=== PATIENT | female | born 1945 | race Caucasian/White ===

== ENCOUNTER 2021-09-03 06:45 | Outpatient (CLI) | payer MEDICARE ==
[~2021-09-03] VITALS: Ht 157.5 cm; Wt 76.2 kg
[2021-09-03] MEDS ORDERED: FAMO20TA3 PO (10:02)
[2021-09-03] MEDS ORDERED: IRBE300T17 PO (10:02)
[2021-09-03] MEDS ORDERED: METF-397 PO (10:02)
[2021-09-03] MEDS ORDERED: FEXO180T84 PO (10:02)
[2021-09-03] MEDS ORDERED: TRIA1TAB3 PO (10:02)
[2021-09-08] MEDS ORDERED: HYDR-3817 PO (11:27)
== END 2021-09-03 10:06 | disposition home or self-care (01) ==
LOC: PREOP 06:45
PROVIDERS: ATTEND Surgery
DX: Z01.818 Encounter for other preprocedural examination (principal)
CPT/HCPCS: 87081

== ENCOUNTER 2021-09-08 06:08 | Day surgery (SDC) | payer MEDICARE ==
--- NOTE | 2021-09-02 16:07 | HISTORY AND PHYSICAL ---
DATE OF SERVICE: ATTENDING PRIMARY CARE PHYSICIAN: Dr. Andrae Clifford. HISTORY: The patient is a 75-year-old female with a palpable breast lesion of the right breast. She states that she noticed this in early June. She does do monthly breast self-examinations as well as yearly mammograms. No other lesions were identified on previous mammograms. The lesion is approximately the 9 o'clock position and is palpable and hard in nature as well as solid. She states that she fell in 12/2020, however, does not feel that this is secondary to the fall. An ultrasound was performed on 08/14/2021, which did show 1.8 x 1.7 cm lesion of the right breast at the 9 o'clock position. She states menses at around age 16 and menopause in her early 40s. She has never been and has not given any live childbirths. She has not had any previous breast biopsies before in the past. She also has not taken any oral contraceptive pills. She does not report any family history of breast cancer. The lesion was palpable and we will schedule her for a 3D mammography; however, also proceed with a needle biopsy today in the office. Either way due to the characteristics of the lesion, she will need eventual excisional biopsy. PAST MEDICAL HISTORY: Diabetes, hypertension, gastroesophageal reflux disease. PAST SURGICAL HISTORY: None. ALLERGIES: PENICILLIN, SULFA. MEDICATIONS: Triamterene/hydrochlorothiazide 37.5/25 mg daily, metformin 500 mg daily, irbesartan 300 mg daily, famotidine 20 mg daily. SOCIAL HISTORY: Previous smoker, quit 40 years ago. Social alcohol. FAMILY HISTORY: Father with lung cancer. Brother, myocardial infarction, age 47. VITAL SIGNS: Stable, current weight 168.7 pounds at 5 feet 2 inches. REVIEW OF SYSTEMS: This is a well-nourished female in no acute distress. She is not experiencing any shortness of breath or difficulty breathing. No chest pain, palpitations, diaphoresis. No nausea, vomiting, no diarrhea or constipation. No fever, chills. No recent inadvertent weight loss. All other review of systems negative. PHYSICAL EXAMINATION: CHEST: Clear. Good breath sounds bilaterally. HEART: Regular, no murmurs. EXTREMITIES: No lower extremity edema, negative Homans sign. HEENT: No scleral icterus. NECK: No cervical lymphadenopathy. ABDOMEN: Soft, nontender, nondistended. BREASTS: There is a well-circumscribed lesion of the right breast at approximately the 9 or 10 o'clock position, which appears to be well demarcated and easily movable and approximately 2 cm in size. No other lesions identified of the right breast as well as the left breast and bilateral axillae. ASSESSMENT AND PLAN: A 75-year-old female with a palpable right breast lesion. We will schedule her for a bilateral 3D mammography; however, due to the solid nature of the lesion, we will eventually need an excisional biopsy, which we will schedule once we get the needle biopsy pathology report. PROCEDURE: The right breast was prepped and draped in standard surgical fashion. A 1% lidocaine was used to anesthetize overlying skin to the lesion. Using a core needle, several biopsies were taken of the palpable lesion and sent on slides as well as in formalin solution. Good hemostasis was observed. Job ID: [id number] DocumentID: [id number] Dictated Date: 08/25/2021 16:26:57 Pocket Stitcher Date: 08/25/2021 16:45:05 Dictated By: HOME CHASE MD
--- NOTE | 2021-09-02 16:08 | HISTORY AND PHYSICAL ---
DATE OF SERVICE: Date of admission will be 09/08/2021. ATTENDING PRIMARY CARE PHYSICIAN: Dr. Andrae Clifford. HISTORY: The patient is a 75-year-old female who noticed a palpable breast lesion at approximately the 9 o'clock position of the right breast in early June of this year. She has been getting screening mammograms for years and her last one was done 08/2020, which did not show any lesions. Once this lesion was palpable, she did undergo an ultrasound, which did show lesion 1.8 x 1.7 cm in size at the 9 o'clock position. This was then biopsied in the office and did come back as an invasive lobular carcinoma. She states that she is otherwise doing well. Has not inadvertently lost any weight and does not report any abdominal pain or any bone pain. She began menses at around age 15 and menopause in her 40s. She has never been and no childbirths. She does not report using any oral contraceptive pills. She has not had any previous biopsies up until the most recent one. She also does not report any family history of breast cancer. PAST MEDICAL HISTORY: Hypertension, diabetes. PAST SURGICAL HISTORY: None. ALLERGIES: PENICILLIN, SULFA. MEDICATIONS: Famotidine 20 mg daily, Suri 180 mg daily, triamterene/hydrochlorothiazide 37.5/25 mg daily, metformin 500 mg daily, irbesartan 300 mg daily. SOCIAL HISTORY: Previous smoker, quit 37 years ago. Social alcohol. FAMILY HISTORY: Father with lung cancer. Brother, myocardial infarction, age 47. VITAL SIGNS: Stable, current weight 168.7 pounds at 5 feet 2 inches. REVIEW OF SYSTEMS: Well-nourished female, currently in no acute distress. She is not experiencing any shortness of breath or difficulty breathing. No chest pain, palpitations, diaphoresis. No nausea, vomiting, no diarrhea or constipation. No fever, chills, no recent inadvertent weight loss. All other review of systems negative. PHYSICAL EXAMINATION: CHEST: Clear. Good breath sounds bilaterally. HEART: Regular, no murmurs. EXTREMITIES: No lower extremity edema, negative Homans sign. HEENT: No scleral icterus. NECK: No cervical lymphadenopathy. ABDOMEN: Soft, nontender, nondistended. SKIN: Warm, dry. BREASTS: There is a palpable lesion at approximately the 9 o'clock position of the right breast, which is small and easily movable. There is no axillary adenopathy. ASSESSMENT AND PLAN: A 75-year-old female with infiltrating lobular carcinoma of the right breast. We will proceed with a right breast lumpectomy as well as a sentinel lymph node biopsy. Job ID: [id number] DocumentID: [id number] Dictated Date: 09/01/2021 17:10:43 Information Services Vice President Date: 09/01/2021 17:30:16 Dictated By: HOME CHASE MD
[2021-09-08] VITALS (11 sets, daily range): BP systolic 117–150; BP diastolic 66–90
[~2021-09-08] VITALS: Ht 157 cm; Wt 76.2 kg
[~2021-09-08 06:08] MED LIST: FAMO20TA3 PO; FEXO180T84 PO; IRBE300T17 PO; METF-397 PO; TRIA1TAB3 PO
[2021-09-08] MEDS ORDERED: CLINDAMYCIN 600 MG/50 ML IVPB 50 ML IV ONE ×2 (06:39→07:15)
[2021-09-08] MEDS ORDERED: LIDOCAINE/EPI 1%-1:200,000 (XYLOCAINE) 30 ML VIAL ONE (11:16)
[2021-09-08] MEDS ORDERED: METHYLENE BLUE 0.5% (PROVAYBLUE) 50 mg/10 ml vial IV ONE (11:16)
[2021-09-08] MEDS ORDERED: fentaNYL INJ 100 MCG/2 ML AMP ONE (11:21)
[2021-09-08] MEDS ORDERED: LIDOCAINE PF 2% 5 ML (XYLOCAINE) VIAL ONE (11:21)
[2021-09-08] MEDS ORDERED: proPOfol 200 MG/20 ML (DIPRIVAN) VIAL IV ONE (11:21)
[2021-09-08] MEDS ORDERED: ONDANSETRON 4 MG/2 ML (SDV) Z0FRAN ONE ×2 (11:21→15:04)
[2021-09-08] MEDS ORDERED: MIDAZOLAM 2 MG/2 ML (VERSED) VIAL ONE (11:23)
--- NOTE | 2021-09-08 11:25 | Progress Note-Pre Operative ---
Pre-Operative Progress Note H&P Reviewed The H&P was reviewed, patient examined and no changes noted. Date Seen by Provider: Sep 08, 2021 Time Seen by Provider: 11:00 Date H&P Reviewed: Sep 08, 2021 Time H&P Reviewed: 11:00 Pre-Operative Diagnosis: right breast ca HOME CHASE MD Sep 08, 2021 11:25
[2021-09-08] MEDS: LACTATED RINGERS 1,000 ML IV PRN ×2 (11:26→14:38)
[2021-09-08] MEDS ORDERED: HYDR-3817 PO (11:27)
--- NOTE | 2021-09-08 11:27 | Discharge Inst-Surgical ---
D/C Lap Instructions-KIDO New, Converted, or Re-Newed RX: RX on Chart Follow Up Appt in 2 weeks Activity as tolerated No driving for 24 hours No [address] while on pain medications Incentive Spirometry use every 2 hours while awake High Fiber Diet 25g or more per day Avoid Alcohol, Caffeine, Spicy [place] and Acid foods. Drink 64 fluid oz or more of fluids per day. Symptoms to Report: Fever over 101 degree F, Nausea/Vomiting If any problems/questions: Contact your physician or go to Emergency Room HOME CHASE MD Sep 08, 2021 11:27
[2021-09-08] MEDS ORDERED: morphine INJ 10 MG/ML 1ML (SYR OR VIAL) IVP PRN ×2 (11:30)
[2021-09-08] MEDS ORDERED: ONDANSETRON 4 MG/2 ML (SDV) Z0FRAN IVP PRN ×2 (11:30→14:45)
[2021-09-08] MEDS ORDERED: ACETAMINOPHEN 325 MG TABLET PO PRN (11:30)
[2021-09-08] MEDS ORDERED: oxyCODONE/APAP 5/325MG (PERCOCET 5) TABLET PO PRN (11:30)
[2021-09-08] MEDS ORDERED: ROPIVACAINE 5MG/ML 30ML VIAL ONE (12:21)
[2021-09-08] MEDS ORDERED: PHENYLEPHRINE 100 MCG/ML 10 ML (ANESTHESIA) SYR ONE (13:09)
--- NOTE | 2021-09-08 14:31 | Progress Note-Post Operative ---
Post-Operative Progess Note Surgeon (s)/Windows Migration Technician (s) Surgeon HOME CHASE MD Windows Migration Technician: fabian garcia PLANT PACKER Pre-Operative Diagnosis right breast ca Post-Operative Diagnosis same Procedure & Operative Findings Date of Procedure 09/08/21 Procedure Performed/Findings subdermal injection, right axillary sentinel node bx, right breast lumpectomy. Anesthesia Type general LMA Estimated Blood Loss Estimated blood loss (mL): minimal Specimens/Packing Specimens Removed right axilla sentinel node. right breast ca, anterior margin HOME CHASE MD Sep 08, 2021 14:31
[2021-09-08] MEDS ORDERED: KETOROLAC 30 MG/ML VIAL ONE (14:43)
[2021-09-08] MEDS ORDERED: SEVOFLURANE (ULTANE) 15 ML INHAL SOLN ONE (14:43)
[2021-09-08] MEDS ORDERED: fentaNYL INJ 100 MCG/2 ML AMP IVP ONE (14:45)
[2021-09-08] MEDS ORDERED: morphine INJ 10 MG/ML 1ML (SYR OR VIAL) IVP ONE (14:45)
[2021-09-08] MEDS ORDERED: morphine INJ 10 MG/ML 1ML (SYR OR VIAL) ONE (15:04)
--- NOTE | 2021-09-08 22:15 | OPERATIVE REPORT ---
DATE OF SERVICE: 09/08/2021 ATTENDING PRIMARY CARE PHYSICIAN: Andrae Clifford MD. PREOPERATIVE DIAGNOSIS: Right breast infiltrating lobular carcinoma. POSTOPERATIVE DIAGNOSIS: Right breast infiltrating lobular carcinoma. PROCEDURES PERFORMED: Submucosal injection, sentinel lymph node biopsy, and right breast lumpectomy. SURGEON: Home Chase MD. ANESTHESIA: General laryngeal mask airway. ESTIMATED BLOOD LOSS: Minimal. FINDINGS: Right breast infiltrating lobular carcinoma. DISPOSITION: The patient tolerated the procedure well. INDICATIONS FOR PROCEDURE: The patient is a 75-year-old female, who noticed a palpable lesion at approximately the 9 o'clock position of the right breast in early June of this year. She has been getting screening mammograms on a yearly basis and the last one was done in 08/2020, which did not show any lesions. Once the lesion was palpable, she did undergo an ultrasound, which did show a 1.8 x 1.7 cm lesion in the 9 o'clock position and this was biopsied in the office and did come back as an invasive lobular carcinoma. She states that she is otherwise doing well and does not report any lymphadenopathy. She also does not report any recent inadvertent weight loss as well as no abdominal pain or any bone pain. She began menses at around age 15 and menopause in her 40s. She has never been with no children. She does not report using any oral contraceptive pills. She has not had any previous breast biopsies up until the most recent one. She also does not report any family history of breast cancer. DESCRIPTION OF PROCEDURE: The patient was brought to the operating room and laid supine on the table. After adequate IV pain and sedative medications and general laryngeal mask airway intubation, the chest and upper extremity were prepped and draped in a standard surgical fashion. Before the procedure, we first proceeded with submucosal injection of isosulfan blue in four quadrants of the nipple areolar complex in a subdermal fashion. This was massaged in for 15 minutes. We then proceeded with identification and excision of the sentinel lymph node using the gamma probe. The axilla was anesthetized with 1% lidocaine with epinephrine and a skin incision was made along the anterior axillary line using a 15 blade. The subcutaneous tissue was then dissected using electrocautery. The clavipectoral fascia was then opened using electrocautery. Using the gamma probe, we identified the sentinel lymph node and the sentinel lymph node was then dissected out using electrocautery with visualization of good hemostasis. The count on the sentinel lymph node was 2286 with a background being 56 consistent with a sentinel lymph node. This was sent for frozen section, which was negative for malignancy. We then directed our attention towards the lumpectomy. A crescent-shaped skin incision was made using a 15 blade after the skin was anesthetized using 1% lidocaine with epinephrine. Subcutaneous tissue was then dissected using electrocautery. We then proceeded with identification of the palpable mass and excising a wide rim of normal appearing tissue using Zee clamps as retraction and electrocautery with visualization of good hemostasis. This was sent for frozen section for gross margins and the closest margin was the anterior along the skin and a wedge of skin was then excised in an elliptical shape using a 15 blade. Good hemostasis was observed. We then proceeded to close the axillary and breast lesion subcutaneous tissue using a 3-0 Vicryl interrupted sutures in a layered fashion and the skin was closed using 4-0 Monocryl running subcuticular sutures. Wounds were then cleaned and covered with Dermabond. The patient tolerated the procedure well. We will start IV normal pain medication as well as a clear liquid diet. When she is tolerating clears, has good pain control with oral pain medications, and ambulating well, we will discharge her home. We will also want her to apply a pressure dressing on the breast and axilla for the next two weeks as well. Job ID: [id number] DocumentID: [id number] Dictated Date: 09/08/2021 14:19:16 Medical Research Scientist Date: 09/08/2021 22:14:33 Dictated By: HOME CHASE MD
--- NOTE | 2021-09-14 12:59 | Anesthesia-General Post-Op ---
General Significant Intra-Op Events Notes late entry from 09/18/21 at 1530 Patient Condition Mental Status/LOC: Same as Preop Cardiovascular: Satisfactory Nausea/Vomiting: Absent Respiratory: Satisfactory Pain: Controlled Complications: Absent Post Op Complications Complications None Follow Up Care/Instructions Patient Instructions None needed. Anesthesia/Patient Condition Patient Condition Patient is doing well, no complaints, stable vital signs, no apparent adverse anesthesia problems. No complications reported per nursing. JENNY CHRISTY CRNA Sep 14, 2021 12:59
== END 2021-09-08 17:00 | disposition home or self-care (01) ==
LOC: RAD 06:08
PROVIDERS: ATTEND Surgery
DX: C50.811 Malignant neoplasm of overlapping sites of right female breast (principal); Z17.0 Estrogen receptor positive status [ER+]; E11.9 Type 2 diabetes mellitus without complications; I10 Essential (primary) hypertension; K21.9 Gastro-esophageal reflux disease without esophagitis; Z79.84 Long term (current) use of oral hypoglycemic drugs; Z79.899 Other long term (current) drug therapy; Z87.891 Personal history of nicotine dependence; Z80.1 Family history of malignant neoplasm of trachea, bronchus and lung; Z88.0 Allergy status to penicillin; Z88.2 Allergy status to sulfonamides
CPT/HCPCS: 82947; 88305; 88307; 88331; 88342; 88360

== ENCOUNTER → 2021-10-12 | Outpatient (CLI) | payer MEDICARE ==
[~2021-10-12] MED LIST changes: +HYDR-3817 PO
--- NOTE | 2021-10-12 13:39 | Diagnostic Imaging Report ---
PROCEDURE: CT chest and abdomen without contrast. TECHNIQUE: Axial images were obtained from the thoracic inlet through the iliac crest without the administration of intravenous contrast. Auto Exposure Controls were utilized during the CT exam to meet ALARA standards for radiation dose reduction. INDICATION: Breast cancer CT CHEST: The lungs are clear. There is no effusion or pneumothorax. There is no mediastinal, hilar or axillary lymphadenopathy. No suspicious bony lesions are seen. CT ABDOMEN: The liver, gallbladder and bile ducts are normal. The spleen, pancreas and adrenals are normal. There is appearance of bilateral parapelvic cysts in the kidneys. No mass is evident. No bowel abnormality is seen. There is no ascites. There is no adenopathy. No suspicious bony lesions are seen. IMPRESSION: CT of the chest and abdomen are negative for metastatic disease. Dictated by: Dictated on workstation # [id number]
--- NOTE | 2021-10-12 15:54 | Diagnostic Imaging Report ---
INDICATION: Breast cancer. COMPARISON: CT chest and abdomen performed on 10/12/2021. TECHNIQUE: 26.5 mCi of technetium 99M MDP was given intravenously. Anterior and posterior whole body images were obtained. FINDINGS: There is focal area of increased activity at T10 on the left with no bony destructive process seen at this site on the CT. There is scoliosis of the lumbar spine. There is some increased activity at the left hip joint, most likely secondary to the degenerative changes present. There is normal uptake throughout the remaining osseous structures. There is bilateral renal function. IMPRESSION: Activity in the region of the pedicle of T10 on the left and increased activity in the left hip joint are likely related to degenerative changes. Dictated by: Dictated on workstation # [id number]
== END ==
LOC: CARD 10:32
PROVIDERS: ATTEND Internal Medicine Hematology & Oncology
DX: C50.411 Malignant neoplasm of upper-outer quadrant of right female breast (principal)
CPT/HCPCS: 71250; 74150; 78306; A9503

== ENCOUNTER 2021-11-19 09:53 | Outpatient (RCR) | payer MEDICARE ==
[2021-10-12 12:09] LABS: ALBUMIN 4.3 GM/DL (3.2-4.5); BILIRUBIN,TOTAL 0.5 MG/DL (0.1-1.0); CALCIUM 10.5 MG/DL (8.5-10.1); CREATININE SERUM 1.71 MG/DL (0.60-1.30); POTASSIUM 4.1 MMOL/L (3.6-5.0); TOTAL PROTEIN 7.6 GM/DL (6.4-8.2)
== END 2021-11-20 | disposition home or self-care (01) ==
LOC: ONC 09:53
PROVIDERS: ATTEND Internal Medicine Hematology & Oncology
DX: Z51.0 Encounter for antineoplastic radiation therapy (principal); C50.411 Malignant neoplasm of upper-outer quadrant of right female breast; Z17.0 Estrogen receptor positive status [ER+]; Z79.1 Long term (current) use of non-steroidal anti-inflammatories (NSAID); Z79.899 Other long term (current) drug therapy; Z79.891 Long term (current) use of opiate analgesic; Z98.890 Other specified postprocedural states
CPT/HCPCS: 77280; 77290; 77295; 77300; 77334; 80053; 99205; 99214

== ENCOUNTER 2021-12-15 09:49 | Outpatient (RCR) | payer MEDICARE | END 2021-12-21 | disposition home or self-care (01) | LOC: ONC 09:49 | PROVIDERS: ATTEND Internal Medicine Hematology & Oncology | DX: Z51.0 Encounter for antineoplastic radiation therapy (principal); C50.411 Malignant neoplasm of upper-outer quadrant of right female breast; Z17.0 Estrogen receptor positive status [ER+]; Z79.1 Long term (current) use of non-steroidal anti-inflammatories (NSAID); Z79.899 Other long term (current) drug therapy; Z79.891 Long term (current) use of opiate analgesic; Z98.890 Other specified postprocedural states; Z90.11 Acquired absence of right breast and nipple | CPT/HCPCS: 77307; 77334; 77336; 77417 ==

== ENCOUNTER → 2022-01-12 | Outpatient (CLI) | payer MEDICARE ==
--- NOTE | 2022-01-12 09:50 | Diagnostic Imaging Report ---
INDICATION: 76-year-old postmenopausal female. COMPARISON: None FINDINGS: AP Spine L1-L4: [BMD (g/cm2): 1.336] [T-Score: 1.1] [Z-Score: 2.5] [BMD Previous: na] [BMD % Change: na] LT Hip Neck: [BMD (g/cm2): 0.884] [T-Score: -1.1] [Z-Score: 0.5] LT Hip Total: [BMD (g/cm2):0.907] [T-Score:-0.8] [Z-Score: 0.6] [BMD Previous: NA] [BMD % Change: NA] RT Hip Neck: [BMD (g/cm2):0.751] [T-Score:-2.1] [Z-Score:-0.4] RT Hip Total: [BMD (g/cm2):0.874] [T-score:-1.1] [Z-Score:0.4] [BMD Previous:NA] [BMD % Change:NA] World Health Organization criteria for BMD interpretation classify patients as Normal (T-score at or above -1.0), Osteopenic (T-score between -1.0 and -2.5) or Osteoporotic (T-score at or below -2.5). LIMITATIONS AND MODIFICATION: None. FRACTURE RISK (FRAX SCORE): The ten year probability of (%): Major Osteoporotic Fracture: [13.0] Hip Fracture: [3.2] IMPRESSION: 1. Osteopenia (Low bone mass). 2. Baseline examination. 3. See below National Osteoporosis Foundation guidelines on when to potentially initiate pharmacologic therapy. Based on the National Osteoporosis Foundation Guidelines, pharmacologic treatment should be initiated in any of the following, unless clinical conditions suggest otherwise: * Any patient with prior fragility fracture of the hip or vertebrae. A spine fracture indicates 5X risk for subsequent spine fracture and 2X risk for subsequent hip fracture. * Osteoporosis (T-score <-2.5). * Postmenopausal women and men age 50 and older with low bone mass/osteopenia (T-score between -1.0 and -2.5) by DXA and 10-year major osteoporotic fracture greater than 20% or a 10-year probability of hip fracture greater than 3%. These fracture risks are supplied above in the FRAX score, if applicable. * Clinician judgement and/or patient preferences may indicate treatment for people with 10-year fracture probabilities above or below these levels. Dictated by: Dictated on workstation # [id number]
== END ==
LOC: RAD 08:00
PROVIDERS: ATTEND Internal Medicine Hematology & Oncology
DX: M85.89 Other specified disorders of bone density and structure, multiple sites (principal); C50.419 Malignant neoplasm of upper-outer quadrant of unspecified female breast; Z78.0 Asymptomatic menopausal state
CPT/HCPCS: 77080

== ENCOUNTER 2022-01-28 10:07 | Outpatient (RCR) | payer MEDICARE | END 2022-02-18 | disposition home or self-care (01) | LOC: ONC 10:07 | PROVIDERS: ATTEND Radiology Radiation Oncology | DX: C50.411 Malignant neoplasm of upper-outer quadrant of right female breast (principal); Z17.0 Estrogen receptor positive status [ER+]; Z79.1 Long term (current) use of non-steroidal anti-inflammatories (NSAID); Z79.899 Other long term (current) drug therapy; Z79.891 Long term (current) use of opiate analgesic; Z98.890 Other specified postprocedural states; Z90.11 Acquired absence of right breast and nipple | CPT/HCPCS: 99213 ==

== ENCOUNTER 2023-03-22 05:31 | Outpatient (CLI) | payer MEDICARE ==
[~2023-03-22] VITALS: Ht 157.5 cm; Wt 72.3 kg
[2023-03-24] MEDS ORDERED: IBUP-2185 PO (08:57)
[2023-03-24] MEDS ORDERED: VITAMIN D (08:57)
[2023-03-24] MEDS ORDERED: ACET-2267 PO (08:57)
== END 2023-03-24 08:57 | disposition home or self-care (01) ==
LOC: PREOP 05:31
PROVIDERS: ATTEND Specialist
DX: Z01.818 Encounter for other preprocedural examination (principal)

== ENCOUNTER → 2023-03-25 | Day surgery (SDC) | payer MEDICARE ==
[~2023-03-25] VITALS: Ht 157.5 cm; Wt 72.3 kg
[~2023-03-25] MED LIST changes: +ACET-2267 PO; +IBUP-2185 PO; +MIDAZOLAM 2 MG/2 ML (VERSED) VIAL ONE; +MOXIFLOXACIN OPHTH SOLN 5 MG/ML 0.3 ML SYRINGE OP ONE; +POVIDONE (BETADINE) OPHTH SOLN 5% 30 ML OP ONE; +TIMOLOL 0.5% (CATARACTS) 0.3 ML BTL OU PRN; +VITAMIN D
[2023-03-25] MEDS: TETRACAINE 0.5% OPHTH SOLN 4 ML BTL (SINGLE DOSE ONLY) OU PRN ×4 (06:17→06:42)
[2023-03-25 06:22] VITALS: BP 136/106
[2023-03-25] MEDS: TROPICAMIDE 1% OPH SOLN (MYDRIACYL) 15 ML BTL OP SCH ×3 (06:31→06:42)
[2023-03-25] MEDS: PHENYLEPHRINE 10% OPHTH (NEO-SYN) 5 ML BTL OU SCH ×3 (06:31→06:42)
--- NOTE | 2023-03-25 06:56 | Ophthalmologist Pre-Op Note ---
Pre-Operative Progress Note H&P Reviewed The H&P was reviewed, patient examined and no changes noted. Date H&P Reviewed: March 25, 2023 Time H&P Reviewed: 06:56 Pre-Op Dx Cataract, Right Eye FILI ZHU MD March 25, 2023 06:56
--- NOTE | 2023-03-25 07:28 | Ophthalmology Operative Report ---
Cataract removal/placement IOL PREOPERATIVE DIAGNOSIS: Cataract Right Eye POSTOPERATIVE DIAGNOSIS: Cataract Right Eye PROCEDURE: Cataract removal and placement of posterior chamber implant, right eye SURGEON: Jaison Zhu ANESTHESIA: Topical with sedation COMPLICATIONS: None ESTIMATED BLOOD LOSS: Minimal DESCRIPTION OF PROCEDURE: After proper informed consent was obtained, the patient, a 77 female, was taken to the Operating Room and the right eye was anesthetized with tetracaine. The right eye was then prepped and draped in the usual manner. A wire lid speculum was placed. A paracentesis was made at the left hand position. Preservative free lidocaine was injected into the anterior chamber followed by viscoelastic. A clear corneal incision was made in the temporal position. A capsulorrhexis was preformed and the central nuclear and cortical material were removed. The posterior capsule was polished and Karthik 20.0 AU00T0 IOL was placed into the capsular bag. The residual viscoelastic was aspirated and balanced saline solution was injected into the anterior chamber. Moxifloxacin was injected into the anterior chamber. The wound was checked and found to be water tight. The patient tolerated the procedure well without complications. JAISON ZHU MD March 25, 2023 07:28
[2023-03-25 07:45] VITALS: BP 145/91
--- NOTE | 2023-03-25 13:05 | Anesthesia-General Post-Op ---
MAC Patient Condition Mental Status/LOC: Same as Preop Cardiovascular: Satisfactory Nausea/Vomiting: Absent Respiratory: Satisfactory Pain: Controlled Complications: Absent Post Op Complications Complications None Follow Up Care/Instructions Patient Instructions None needed. Anesthesiology Discharge Order Discharge Order Patient is doing well, no complaints, stable vital signs, no apparent adverse anesthesia problems. No complications reported per nursing. LUIGI BLANCA CRNA March 25, 2023 13:05
== END | disposition home or self-care (01) ==
LOC: SDC 06:06
PROVIDERS: ATTEND Specialist
DX: E11.36 Type 2 diabetes mellitus with diabetic cataract (principal); H25.9 Unspecified age-related cataract; Z79.84 Long term (current) use of oral hypoglycemic drugs; Z87.891 Personal history of nicotine dependence; Z85.3 Personal history of malignant neoplasm of breast
CPT/HCPCS: 66984; V2632

== ENCOUNTER → 2023-03-31 | Outpatient (CLI) | payer MEDICARE ==
[~2023-03-31] MED LIST changes: -MIDAZOLAM 2 MG/2 ML (VERSED) VIAL ONE; -MOXIFLOXACIN OPHTH SOLN 5 MG/ML 0.3 ML SYRINGE OP ONE; -POVIDONE (BETADINE) OPHTH SOLN 5% 30 ML OP ONE; -TIMOLOL 0.5% (CATARACTS) 0.3 ML BTL OU PRN
== END | disposition home or self-care (01) ==
LOC: PREOP 05:33
PROVIDERS: ATTEND Specialist
DX: Z01.818 Encounter for other preprocedural examination (principal); H25.12 Age-related nuclear cataract, left eye

== ENCOUNTER 2023-04-08 06:09 | Day surgery (SDC) | payer MEDICARE ==
[~2023-04-08] VITALS: Ht 157.5 cm; Wt 72.3 kg
[2023-04-08] MEDS ORDERED: TROPICAMIDE 1% OPH SOLN (MYDRIACYL) 15 ML BTL OP SCH (06:15)
[2023-04-08] MEDS ORDERED: POVIDONE (BETADINE) OPHTH SOLN 5% 30 ML OP ONE (06:15)
[2023-04-08] MEDS ORDERED: PHENYLEPHRINE 10% OPHTH (NEO-SYN) 5 ML BTL OU SCH (06:15)
[2023-04-08] MEDS ORDERED: MOXIFLOXACIN OPHTH SOLN 5 MG/ML 0.3 ML SYRINGE OP ONE (06:15)
[2023-04-08] MEDS ORDERED: TIMOLOL 0.5% (CATARACTS) 0.3 ML BTL OU PRN (06:15)
[2023-04-08] MEDS: TETRACAINE 0.5% OPHTH SOLN 4 ML BTL (SINGLE DOSE ONLY) OU PRN ×2 (06:18→06:28)
[2023-04-08 06:21] VITALS: BP 139/80
--- NOTE | 2023-04-08 06:55 | Ophthalmologist Pre-Op Note ---
Pre-Operative Progress Note H&P Reviewed The H&P was reviewed, patient examined and no changes noted. Date H&P Reviewed: April 08, 2023 Time H&P Reviewed: 06:55 Pre-Op Dx Cataract, Left Eye FILI ZHU MD April 08, 2023 06:55
[2023-04-08] MEDS ORDERED: MIDAZOLAM 2 MG/2 ML (VERSED) VIAL ONE (06:56)
--- NOTE | 2023-04-08 07:14 | Ophthalmology Operative Report ---
Cataract removal/placement IOL PREOPERATIVE DIAGNOSIS: Cataract Left Eye POSTOPERATIVE DIAGNOSIS: Cataract Left Eye PROCEDURE: Cataract removal and placement of posterior chamber implant, left eye SURGEON: Jaison Zhu ANESTHESIA: Topical with sedation COMPLICATIONS: None ESTIMATED BLOOD LOSS: Minimal DESCRIPTION OF PROCEDURE: After proper informed consent was obtained, the patient, a 77 female, was taken to the Operating Room and the left eye was anesthetized with tetracaine. The left eye was then prepped and draped in the usual manner. A wire lid speculum was placed. A paracentesis was made at the left hand position. Preservative free lidocaine was injected into the anterior chamber followed by viscoelastic. A clear corneal incision was made in the temporal position. A capsulorrhexis was preformed and the central nuclear and cortical material were removed. The posterior capsule was polished and an Karthik 20.5 AU00T0 was placed into the capsular bag. The residual viscoelastic was aspirated and balanced saline solution was injected into the anterior chamber. Moxifloxacin was injected into the anterior chamber. The wound was checked and found to be water tight. The patient tolerated the procedure well without complications. JAISON ZHU MD April 08, 2023 07:14
[2023-04-08 07:16] VITALS: BP 130/84
--- NOTE | 2023-04-08 12:19 | Anesthesia-General Post-Op ---
MAC Patient Condition Mental Status/LOC: Same as Preop Cardiovascular: Satisfactory Nausea/Vomiting: Absent Respiratory: Satisfactory Pain: Controlled Complications: Absent Post Op Complications Complications None Follow Up Care/Instructions Patient Instructions None needed. Anesthesiology Discharge Order Discharge Order Patient is doing well, no complaints, stable vital signs, no apparent adverse anesthesia problems. No complications reported per nursing. LUIGI BLANCA CRNA April 08, 2023 12:19
== END 2023-04-08 07:19 | disposition home or self-care (01) ==
LOC: SDC 06:09
PROVIDERS: ATTEND Specialist
DX: E11.36 Type 2 diabetes mellitus with diabetic cataract (principal); H25.9 Unspecified age-related cataract; Z87.891 Personal history of nicotine dependence
CPT/HCPCS: 66984; V2632